=== PATIENT | female | born 1955 | race Two or more races ===

== ENCOUNTER 2018-09-24 10:07 | Emergency (ER) | payer OTHER ==
[~2018-09-24] VITALS: Ht 167.6 cm; Wt 848.2 kg
[~2018-09-24 10:07] MED LIST: ASMANEX0.24 G1 IH; GLUCOPHAGE XR500 MG; NORVASC2.5 M1; PROTONIX40 MG PO; SINGULAIR 10MG10 MG PO
[2018-09-24] MEDS ORDERED: HORIZANT300 MG (10:28)
[2018-09-24] MEDS ORDERED: PLAVIX75 MG PO (10:28)
== END 2018-09-24 15:51 | disposition home or self-care (01) ==
LOC: ER 10:07
DX: K57.30 Diverticulosis of large intestine without perforation or abscess without bleeding (principal)

== ENCOUNTER → 2018-10-08 | Emergency (ER) | payer OTHER ==
[~2018-10-08] VITALS: Ht 167.6 cm; Wt 81.6 kg
[~2018-10-08] MED LIST changes: +HORIZANT300 MG; +PLAVIX75 MG PO
== END | disposition home or self-care (01) ==
LOC: ER 14:03
DX: K57.92 Diverticulitis of intestine, part unspecified, without perforation or abscess without bleeding (principal); R10.823 Right lower quadrant rebound abdominal tenderness

== ENCOUNTER 2018-11-29 01:53 | Emergency (ER) | payer OTHER ==
[~2018-11-29] VITALS: Ht 167.6 cm; Wt 81.6 kg
[2018-11-29] MEDS ORDERED: INTESTINEX680 M1 PO (08:14)
[2018-11-29] MEDS ORDERED: ULTRACET PO (08:14)
[2018-11-29] MEDS ORDERED: LEVSIN/SL0.125 MG SL (08:14)
[2018-11-29] MEDS ORDERED: FLAGYL500MG PO (08:14)
[2018-11-29] MEDS ORDERED: CIPRO500 MG PO (08:14)
[2018-11-29] MEDS ORDERED: PEPCID AC20 MG PO (08:14)
== END 2018-11-29 09:26 | disposition home or self-care (01) ==
LOC: ER 01:53
DX: K57.32 Diverticulitis of large intestine without perforation or abscess without bleeding (principal)

== ENCOUNTER 2021-06-15 10:28 | Emergency (ER) | payer OTHER ==
[~2021-06-15] VITALS: Ht 167.6 cm; Wt 83.9 kg
[~2021-06-15 10:28] MED LIST changes: +CIPRO500 MG PO; +FLAGYL500MG PO; +INTESTINEX680 M1 PO; +LEVSIN/SL0.125 MG SL; +PEPCID AC20 MG PO; +ULTRACET PO
[2021-06-15] MEDS ORDERED: CLOPIDOGREL BIS75 MG (10:36)
[2021-06-15] MEDS ORDERED: NEURONTIN300 MG (10:37)
[2021-06-15] MEDS ORDERED: TESSALON PERLE100 M1 PO (14:38)
[2021-06-15] MEDS ORDERED: ZITHROMAX TRI-500 MG PO (14:38)
== END 2021-06-15 14:53 | disposition home or self-care (01) ==
LOC: ER 10:28
DX: B34.9 Viral infection, unspecified (principal); Z03.818 Encounter for observation for suspected exposure to other biological agents ruled out; R07.89 Other chest pain; R05.9 Cough, unspecified

== ENCOUNTER 2021-07-17 08:03 | Emergency (ER) | payer OTHER ==
[~2021-07-17] VITALS: Ht 167.6 cm; Wt 83.9 kg
[~2021-07-17 08:03] MED LIST changes: +CLOPIDOGREL BIS75 MG; +NEURONTIN300 MG; +TESSALON PERLE100 M1 PO; +ZITHROMAX TRI-500 MG PO
== END 2021-07-17 12:24 | disposition home or self-care (01) ==
LOC: ER 08:03
DX: J02.9 Acute pharyngitis, unspecified (principal); Z03.818 Encounter for observation for suspected exposure to other biological agents ruled out

== ENCOUNTER → 2021-07-24 | Emergency (ER) | payer OTHER ==
[~2021-07-24] VITALS: Ht 167.6 cm; Wt 83.9 kg
[~2021-07-24] MED LIST changes: +COZAAR25 MG PO; +FLONASE16 GM NS; +PEPCID AC20 MG; +SINGULAIR4 MG PO
== END | disposition home or self-care (01) ==
LOC: ER 10:37
DX: J06.9 Acute upper respiratory infection, unspecified (principal); Z11.52 Encounter for screening for COVID-19

== ENCOUNTER → 2024-07-24 | Emergency (ER) | payer OTHER ==
[~2024-07-24] VITALS: Ht 167.6 cm; Wt 86.2 kg
[~2024-07-24] MED LIST changes: +BENZONATATE150 MG PO; +ZITHROMAX200 MG PO
[2024-07-24 10:59] LABS: PH,URINE 6.5 (5.0-8.0); URINE APPEARANCE Cloudy; URINE BILIRRUBIN Negative (NEGATIVE); URINE BLOOD Small; URINE COLOR Dark Yellow; URINE GLUCOSE Negative (NEGATIVE); URINE KETONE Trace (NEGATIVE); URINE LEUKOCYTE Trace; URINE NITRATE Negative; URINE PROTEIN Trace (NEGATIVE)
[2024-07-24 11:00] LABS: HEMATOCRIT 38.6 % (36.0-45.00); HEMOGLOBIN 12.7 g/dL (12.0-15.00); MEAN CELL VOLUME 84.3 fL (80.00-100.00); MEAN CORPUSCULAR HEMOGLOBIN 27.7 pg (27.00-32.0); MEAN CORPUSCULAR HGB CONC 32.8 g/dl (32.0-36.0); PLATELET COUNT 271 K/uL (150-450); RED BLOOD COUNT 4.58 M/uL (4.00-6.00); RED CELL DISTRIBUTION WIDTH 14.3 % (11.5-14.5)
[2024-07-24 11:03] LABS: URINE BACTERIA 63.6 uL (0.0-1933); URINE CAST 1.91 uL (0.0-1.40); URINE EPITHELIAL CELLS 50.4 uL (0.0-38.8); URINE RBC 117.9 uL (0.0-20.8); URINE WBC 8.3 uL (0.0-23.2)
[2024-07-24 11:27] LABS: CALCIUM 9.9 mg/dL (8.5-10.1); CREATININE SERUM 0.78 mg/dL (0.55-1.02); GFR 72.8; POTASSIUM 3.67 mEq/L (3.5-5.1)
== END | disposition home or self-care (01) ==
LOC: ER 08:24
PROVIDERS: General Practice
DX: N76.0 Acute vaginitis (principal); R30.0 Dysuria; I10 Essential (primary) hypertension; Z88.6 Allergy status to analgesic agent

== ENCOUNTER → 2024-09-20 11:15 | Outpatient (CLI) | payer OTHER ==
[2024-09-20 12:39] LABS: CREATININE SERUM 0.83 mg/dL (0.55-1.02); GFR 67.77
== END | disposition home or self-care (01) ==
LOC: LAB 11:15
PROVIDERS: ATTEND Radiology Diagnostic Radiology
DX: R07.9 Chest pain, unspecified (principal)

== ENCOUNTER → 2024-09-20 | Outpatient (CLI) | payer OTHER | END | disposition home or self-care (01) | LOC: TOM 12:10 | PROVIDERS: ATTEND General Practice | DX: R07.9 Chest pain, unspecified (principal) | CPT/HCPCS: 71260; Q9965 ==

== ENCOUNTER 2024-10-29 08:44 | Emergency (ER) | payer OTHER ==
[~2024-10-29] VITALS: Ht 167.6 cm; Wt 86.2 kg
== END 2024-10-29 09:27 | disposition home or self-care (01) ==
LOC: ER 08:45
DX: H57.10 Ocular pain, unspecified eye (principal); I10 Essential (primary) hypertension; Z88.6 Allergy status to analgesic agent